=== PATIENT | female | born 1990 | race Caucasian/White ===

== ENCOUNTER 2018-06-25 02:46 | Emergency (ER) | payer OTHER ==
[~2018-06-25] VITALS: Ht 167.6 cm; Wt 68.0 kg
[2018-06-25 02:49] VITALS: Ht 167.6 cm; Wt 68.0 kg
[2018-06-25 05:25] VITALS: BP 108/76
== END 2018-06-25 05:25 | disposition home or self-care (01) ==
LOC: ED 02:46
DX: T51.91XA Toxic effect of unspecified alcohol, accidental (unintentional), initial encounter (principal); Y92.89 Other specified places as the place of occurrence of the external cause
CPT/HCPCS: G0480; Q0162